=== PATIENT | female | born 1960 | race Caucasian/White ===

== ENCOUNTER 2018-09-30 16:16 | Inpatient (IN) | payer OTHER, SELFPAY ==
[~2018-09-30 16:16] MED LIST: ISOVUE-370 76%-LOCM 1 ML ONE
[2018-09-30] MEDS ORDERED: Morphine 4 MG/ML VIAL ONE ×3 (17:45→19:54)
[2018-09-30 18:09] LABS: #Eosinphils 0.4 thou/uL (0.0-0.7); #Lymphocytes 1.2 thou/uL (1.20-3.40); #Monocytes 1.2 thou/uL (0.11-0.59); #Neutrophils 11.8 thou/uL (1.40-6.50); %Basophils 0.3 % (0.0-1.0); %Eosinophils 2.6 % (0.0-10.0); %Lymphocytes 8.5 % (21.0-51.0); %Monocytes 7.8 % (0.0-10.0); %Neutrophils 80.8 % (42.0-75.0); Hemoglobin 9.9 g/dL (12.0-16.0); Mean Corpuscular HGB CONC 33.4 g/dL (32.0-36.0); Mean Corpuscular Hemoglobin 31.6 pg (27.0-31.0); Mean Corpuscular Volume 94.7 fL (78.0-98.0); Mean Platelet Volume 7.2 fL (7.4-10.4); Platelet Count 463 thou/uL (130-400); Red Blood Cell (RBC) Count 3.12 mill/uL (4.20-5.40); White Blood Cell (WBC) Count 14.6 thou/uL (4.8-10.8)
[2018-09-30] MEDS ORDERED: Enoxaparin Sodium 60 MG/0.6 ML SYRINGE ONE (18:28)
[2018-09-30 18:30] LABS: ALT (SGPT) 49 U/L (8-55); AST (SGOT) 60 U/L (5-34); Albumin 3.2 g/dL (3.5-5.0); Alkaline Phosphatase 1842 U/L (40-150); Anion Gap 14 mmol/L (10-20); BUN (Urea Nitrogen) 11 mg/dL (9.8-20.1); Bilirubin, Total 5.3 mg/dL (0.2-1.2); CK (CPK) 50 U/L (29-168); Calc. Creatinine Clearance 0 mL/min (70-130); Calcium 9.1 mg/dL (7.8-10.44); Carbon Dioxide 22 mmol/L (22-29); Chloride 102 mmol/L (98-107); Estimated GFR-MDRD 86; Globulin 3.9 g/dL (2.4-3.5); Glucose 109 mg/dL (70-105); Lipase 43 U/L (8-78); Potassium 4.1 mmol/L (3.5-5.1); Protein, Total 7.1 g/dL (6.0-8.3); Sodium 134 mmol/L (136-145)
--- NOTE | 2018-09-30 19:04 | CT ---
CTA CHEST WITH CONTRAST: 09/30/18 Axial tomograms obtained with multiplanar reconstruction and 3D postprocessing. INDICATIONS: Chest pain and shortness of breath. A CT from [facility] dated 08/16/18 is available for comparison. That exam shows numerous l ow density lesions throughout the liver indicating metastatic disease. FINDINGS: There are bilateral pulmonary emboli. There is a large saddle type embolus in the left main pulmonary artery. Emboli are seen on the right extending into the right upper, lower, and right middle lobe pu lmonary arteries. Extensive emboli extending to the left lower lobe pulmonary arteries. The lungs show patchy infiltrate in the posterior left lung base extending to the pleural surface wit h left basilar atelectasis posteriorly. Findings are concerning for atelectasis and inflammatory inf iltrate. Mediastinum unremarkable. Thoracic aorta unremarkable. Images through the upper abdomen again show nu merous low density lesions in the liver consistent with metastatic disease. Osseous structures unremarkable. IMPRESSION: 1. Bilateral pulmonary emboli. 2. Atelectasis and infiltrate in the left lung base. 3. Findings relayed to Dr. Sutton. POS: [facility]
[2018-09-30] MEDS ORDERED: Ondansetron PF 4 MG/2 ML Vial ONE (19:54)
[2018-09-30] MEDS ORDERED: Ketorolac Tromethamine 30 MG/ML VIAL ONE (19:54)
[2018-09-30] MEDS ORDERED: Ondansetron ODT 4 MG TAB PO PRN (20:30)
[2018-09-30] MEDS ORDERED: Acetaminophen 650 MG Suppository PR PRN (20:30)
[2018-09-30] MEDS: Promethazine HCl 25 MG/ML VIAL IM/IV PRN (21:55)
--- NOTE | 2018-09-30 22:54 | HP ---
CODE STATUS: Full code. TIME OF EVALUATION: 07:30 p.m. CHIEF COMPLAINT: Shortness of breath. HISTORY OF PRESENT ILLNESS: 58-year-old female patient with past medical history of recent diagnosis of colon cancer, is following with Dr. Alfredo, started chemo recently, came to the hospital after having severe chest pain associated with shortness of breath that started suddenly with no clear triggers. No alleviating factors. Symptoms started around 3 p.m. and gradually worse. The patient was found to have positive CT for pulmonary embolism, has been started on anticoagulation. Also, the patient was started on antibiotics given recent episode of fever and leukocytosis. REVIEW OF SYSTEMS: CONSTITUTIONAL: The patient has fever, chills, generalized weakness. RESPIRATORY: The patient has cough, no sputum production, shortness of breath. CARDIOVASCULAR: No chest pain or palpitation. GASTROINTESTINAL: No nausea, vomiting, diarrhea, or abdominal pain. CENTRAL NERVOUS SYSTEM: No dizziness, headache, or lightheaded. GENITOURINARY: No burning on urination. EXTREMITIES: No leg swelling. All other systems were reviewed and negative except for the findings mentioned above. PAST MEDICAL HISTORY: Positive for metastatic colon cancer with metastasis to the liver. PAST SURGICAL HISTORY: Right port placement. SOCIAL HISTORY: The patient lives at home. No alcohol. No drugs. FAMILY HISTORY: Positive for diabetes, hypertension, coronary artery disease. Mother with cancer in the mouth. KNOWN ALLERGIES: No known drug allergies. REPORTED MEDICATIONS: Compazine. PHYSICAL EXAMINATION: VITAL SIGNS: On presentation, blood pressure 133/67 with heart rate 89, temperature 97.8. GENERAL: The patient is alert, oriented, in no acute distress. HEENT: Eyes, normal conjunctivae. Moist oral mucosa. Anicteric. No JVD. RESPIRATORY: Bilateral air entry. No rales. No wheezes. Symmetric expansion. CARDIOVASCULAR: Normal rate and regular rhythm. No murmurs. No gallops. No edema. ABDOMEN: Soft. Normal bowel sounds. MUSCULOSKELETAL: Baseline range of motion and strength. SKIN: Warm, intact. No pallor. No rash. No redness. Capillary refill seems to be intact. NEUROLOGIC: No evidence of any new focal weakness. Cranial nerves seem to be intact. PSYCHIATRIC: Patient is in good mood. No anxiety. Optimal judgment. DIAGNOSTIC STUDIES: EKG was reviewed. The patient has normal sinus rhythm with a rate of 86, some possible short MS. No additional or significant abnormalities in the EKG. The CT chest showed bilateral pulmonary embolism, left-sided infiltrate. LABORATORY DATA: Labs were reviewed. The patient has white count of 14.6, hemoglobin 9.9, MCV 94.7, platelet count 163. Sodium 134, potassium 4.1, chloride 102, carbon dioxide 22, anion gap 14, BUN 11, creatinine 0.70, GFR 86, glucose 109, calcium 9.1, total bilirubin 5.3, AST 60, and ALT 49, alkaline phosphatase 1842. CK 50. Troponin was negative. Serum total protein 7.1, albumin 3.2, globulin 3.9, albumin to globulin ratio 0.8, lipase 43. ASSESSMENT AND PLAN: The patient will be placed in the hospital with following medical problems; 1. Bilateral pulmonary embolism. We will monitor the patient overnight. The patient will be started on blood thinners. The patient is on Ensure. The patient will need assistance with casework manager for her to have her treatment with anticoagulation for outpatient. Ideally Lovenox could be the best choice given the history of cancer. These will need to be arranged prior to patient discharge . 2. Normocytic anemia. This could be secondary to underlying cancer. There is no sign of bleeding at this point. We will monitor hemoglobin. We will treat accordingly. 3. Leukocytosis with white count of 14.6, likely secondary to sepsis with source for pneumonia. Treatment as stated below. 4. Left lower lobe pneumonia. The patient has been started on antibiotics. Monitor cultures. Hydration as needed. Oxygen to keep saturation more than 90. 5. Sepsis. The patient has subjective fever, leukocytosis of 14, source is pneumonia. Started on antibiotics, cultures, we will adjust treatment as per sensitivity, hydration. 6. Metastatic colon cancer to the liver. The patient follows with Dr. Alfredo. This can be followed as outpatient if no other complications appear during admission. 7. Hyponatremia, sodium 134. This is mild, we will monitor, we will treat accordingly. 8. High liver function tests secondary to metastatic liver disease. No need for any acute intervention at this point. 9. Deep venous thrombosis prophylaxis. Job ID: [id number]
[2018-10-01] MEDS: traMADol HCl 50 MG TAB PO PRN (05:02)
[2018-10-01] MEDS: Enoxaparin Sodium 60 MG/0.6 ML SYRINGE SC SCH ×2 (05:05→17:43)
[2018-10-01 05:09] LABS: #Eosinphils 0.5 thou/uL (0.0-0.7); #Lymphocytes 1.6 thou/uL (1.20-3.40); #Monocytes 1.1 thou/uL (0.11-0.59); #Neutrophils 10.7 thou/uL (1.40-6.50); %Basophils 0.3 % (0.0-1.0); %Eosinophils 3.3 % (0.0-10.0); %Lymphocytes 11.4 % (21.0-51.0); %Monocytes 8.2 % (0.0-10.0); %Neutrophils 76.9 % (42.0-75.0); Hemoglobin 10.2 g/dL (12.0-16.0); Mean Corpuscular HGB CONC 32.8 g/dL (32.0-36.0); Mean Corpuscular Hemoglobin 31.4 pg (27.0-31.0); Mean Corpuscular Volume 95.7 fL (78.0-98.0); Platelet Count 458 thou/uL (130-400); RBC Distribution Width 18.3 % (11.5-14.5); Red Blood Cell (RBC) Count 3.25 mill/uL (4.20-5.40); White Blood Cell (WBC) Count 13.9 thou/uL (4.8-10.8)
[2018-10-01 05:25] LABS: Anion Gap 11 mmol/L (10-20); BUN (Urea Nitrogen) 10 mg/dL (9.8-20.1); Calc. Creatinine Clearance 0 mL/min (70-130); Calcium 9.5 mg/dL (7.8-10.44); Carbon Dioxide 25 mmol/L (22-29); Chloride 103 mmol/L (98-107); Estimated GFR-MDRD 87; Glucose 85 mg/dL (70-105); Potassium 4.3 mmol/L (3.5-5.1); Sodium 135 mmol/L (136-145)
[2018-10-01] MEDS ORDERED: Vancomycin HCl 750 MG in Sodium Chloride 0.9% 250 ML 250 ML IVPB SCH (06:00)
[2018-10-01] MEDS: Morphine 2 MG/ML SYRINGE SLOW IVP PRN ×4 (07:15→20:50)
[2018-10-01] MEDS: Ondansetron PF 4 MG/2 ML Vial IVP PRN ×2 (08:12→15:34)
--- NOTE | 2018-10-01 10:19 | CON ---
DATE OF CONSULTATION: HISTORY OF PRESENT ILLNESS: A 58-year-old female, who presented with a 24-hour history of left-sided chest pain, pleuritic in nature, unresponsive to Tylenol, and shortness of breath. She had coughing, wheezing, orthopnea, and PND. She is a lifelong nonsmoker. No prior history of TB, pneumonia, or bronchial asthma. She was diagnosed to have colon cancer and seeing a local oncologist, received chemotherapy. PAST MEDICAL HISTORY: Otherwise, pertinent for colon cancer. PAST SURGICAL HISTORY: Previous surgeries included a MediPort inserted along with a biopsy of the mass. 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 MEDICATIONS: Chronic medication, none. ALLERGIES: NONE. FAMILY HISTORY: Unremarkable. REVIEW OF SYSTEMS: Negative. PHYSICAL EXAMINATION: VITAL SIGNS: Temperature 98, pulse 73, respiratory rate 18, saturations 98% on room air, blood pressure 120/78. CHEST: Decreased breath sounds. No wheezing. CARDIAC: Normal S1 and S2. No gallops. ABDOMEN: No masses. LABORATORY DATA: Alkaline phosphatase is 1842. White count 13,000. IMPRESSION: 1. Bilateral pulmonary emboli. 2. Metastatic colon cancer. PLAN: No evidence to suspect any infection. I would discontinue antibiotics, continue Lovenox, eventually switch over to Eliquis as per Oncology. TIME SPENT: Consultation note, 70 minutes, 50% in direct patient care. Job ID: [id number]
[2018-10-01] MEDS: Promethazine HCl 25 MG/ML VIAL IM/IV PRN (11:43)
[2018-10-01] MEDS ORDERED: Polyethylene Glycol 3350 17 GM Packet PO SCH (12:30)
--- NOTE | 2018-10-01 15:46 | PDOC.HOSPP ---
- Subjective Subjective: 58 y/o female with metastatic colon cancer admitted with chest pain and SOB associated with low grade fever and leucocytosis. Found to have bilateral PE as well as left lower lobe infiltrate. Feeling better. - Objective Vital Signs & Weight: Vital Signs (12 hours) Temp Pulse Resp BP Pulse Ox 10/01/18 12:34 99.8 F H 89 18 162/76 H 98 10/01/18 07:45 96 10/01/18 07:23 98.1 F 83 18 138/77 95 Weight Weight 132 lb 1.6 oz I&O: 09/30/18 10/01/18 10/02/18 06:59 06:59 06:59 Intake Total 740 Balance 740 Result Diagrams: 10/01/18 04:51 10/01/18 04:51 ROS - Review of Systems All systems: All other ROS were reviewed and found negative. - Medication Medications: Active Medications Generic Name Dose Route Start Last Admin Trade Name Freq PRN Reason Stop Dose Admin Enoxaparin Sodium 60 mg 10/01/18 06:00 10/01/18 05:05 Lovenox SC 10/01/18 20:00 60 mg 0600,1800 SAMEER Administration Morphine Sulfate 2 mg 10/01/18 06:19 10/01/18 15:34 Morphine SLOW IVP 2 mg Q4H PRN Administration Severe Pain (7-10) Ondansetron HCl 4 mg 09/30/18 20:30 10/01/18 15:34 Zofran IVP 4 mg Q6H PRN Administration Nausea/Vomiting Promethazine HCl 25 mg 09/30/18 21:30 10/01/18 11:43 Phenergan IM/IV 25 mg Q6H PRN Administration Nausea/Vomiting Sodium Chloride 10 ml 10/01/18 09:00 10/01/18 08:13 Flush - Normal Saline IVF 10 ml Q12HR SAMEER Administration Sodium Chloride 10 ml 09/30/18 22:23 10/01/18 05:07 Flush - Normal Saline IVF 10 ml PRN PRN Administration Saline Flush Tramadol HCl 50 mg 10/01/18 04:26 10/01/18 05:02 Ultram PO 50 mg Q6H PRN Administration Moderate Pain (4-6) - Exam NAD, awake alert Eye: PERRL ENT: normocephalic atraumatic Neck: supple, symmetric, no JVD Heart: RRR, no murmur Respiratory: CTAB (with some transmitted sound.) Gastrointestinal: soft, non-tender, non-distended, normal bowel sounds Extremities: no cyanosis, no clubbing, no edema Skin: normal turgor Neurological: CN's grossly intact, normal sensation to touch, no weakness, no focal deficits Musculoskeletal: normal tone, normal strength Psychiatric: normal affect, normal behavior, A&O x 3 Hosp A/P (1) Pulmonary emboli Code(s): I26.99 - OTHER PULMONARY EMBOLISM WITHOUT ACUTE COR PULMONALE Status : Acute (2) SIRS (systemic inflammatory response syndrome) Code(s): R65.10 - SIRS OF NON-INFECTIOUS ORIGIN W/O ACUTE ORGAN DYSFUNCTION Status: Acute (3) Sepsis Code(s): A41.9 - SEPSIS, UNSPECIFIED ORGANISM Status: Acute (4) Pneumonia Code(s): J18.9 - PNEUMONIA, UNSPECIFIED ORGANISM Status: Acute (5) Metastatic colon cancer in female Code(s): C18.9 - MALIGNANT NEOPLASM OF COLON, UNSPECIFIED Status: Acute (6) Chest pain Code(s): R07.9 - CHEST PAIN, UNSPECIFIED Status: Acute - Plan Continue anticoagulation> We will transfer [facility] in the morning Continue antibiotic Start incentive spirometry Awaiting oncology input. Diet as tolerated increase activity
[2018-10-01] MEDS: Acetaminophen 325 MG TAB PO PRN (17:43)
--- NOTE | 2018-10-01 17:47 | CON ---
DATE OF CONSULTATION: REASON FOR CONSULTATION: Colon cancer and pulmonary embolism. HISTORY OF PRESENT ILLNESS: A 58-year-old female with stage IV colon cancer with liver metastasis, status post 1 cycle of chemotherapy received on September 23, presenting to the hospital with severe chest pain and shortness of breath that came on suddenly yesterday and found to have PE. CT angio showed bilateral pulmonary embolism with a large saddle-type embolus in the left main pulmonary artery and emboli in the right, extending in the right upper lower and middle lobe pulmonary arteries and extensive emboli extending into the left lower lobe pulmonary arteries as well. The patient was started on Lovenox, and already notes some improvement in her shortness of breath, though she states her pain is still there. She will require indefinite anticoagulation. She denies any unilateral swelling in her legs, but does note bilateral swelling. REVIEW OF SYSTEMS: Ten-point review of systems negative, except as per HPI. PAST MEDICAL HISTORY: Colon cancer with metastasis to liver. PAST SURGICAL HISTORY: Right MediPort placement. SOCIAL HISTORY: No alcohol, drugs, or smoking. FAMILY HISTORY: Diabetes, hypertension, CAD. Mother had oral cancer. ALLERGIES: NO KNOWN DRUG ALLERGIES. CURRENT MEDICATIONS: Reviewed. PHYSICAL EXAMINATION: VITAL SIGNS: Temperature 99.2, pulse 95, respirations 18, saturating 95% on room air, blood pressure 135/72. GENERAL APPEARANCE: The patient is sitting up in a chair, in no acute distress. HEENT: Normocephalic, atraumatic. RESPIRATIONS: Clear to auscultation bilaterally without wheezes, rales, or rhonchi. CARDIOVASCULAR: S1 and S2 with regular rate and rhythm. ABDOMEN: Soft, nontender. MUSCULOSKELETAL: Moves all extremities. SKIN: Warm, intact. EXTREMITIES: Lower extremity; bilateral 1+ lower extremity edema without tenderness or erythema. NEUROLOGIC: Cranial nerves grossly intact. PSYCHIATRIC: Awake, alert, and oriented x3. LABORATORY DATA: White blood cells 13.9, hemoglobin 10.2, platelets 458. Sodium 135, potassium 4.3, BUN 10, creatinine 0.69, total bilirubin 5.3, AST 60, ALT 49, alkaline phosphatase 1842, albumin 3.2. IMAGING DATA: CT angio of the chest shows bilateral PE. ASSESSMENT AND PLAN: A 58-year-old female with stage IV colon cancer on chemotherapy, presenting with bilateral PE. The patient is currently on Lovenox and we will recommend transitioning to Eliquis preparation for discharge. She will require indefinite anticoagulation due to her metastatic cancer, and I have discussed this with her. The patient's anemia is secondary to both her cancer and iron deficiency. In addition, her leukocytosis is reactive secondary to her malignancy. The patient can follow up with me as an outpatient and is still planned to receive her next dose of chemotherapy on Thursday, October 06, 2018. Plan of care was discussed with the patient and her family. Thank you for this consult. Job ID: [id number]
[2018-10-02] MEDS: traMADol HCl 50 MG TAB PO PRN ×3 (04:38→20:18)
[2018-10-02] MEDS: Acetaminophen 325 MG TAB PO PRN (04:38)
[2018-10-02] MEDS: Apixaban 5 MG TAB PO SCH ×2 (05:52→17:48)
[2018-10-02] MEDS ORDERED: Apixaban 5 MG TAB PO SCH (06:00)
[2018-10-02 06:03] LABS: #Eosinphils 0.4 thou/uL (0.0-0.7); #Lymphocytes 1.3 thou/uL (1.20-3.40); #Monocytes 1.6 thou/uL (0.11-0.59); #Neutrophils 7.1 thou/uL (1.40-6.50); %Basophils 0.4 % (0.0-1.0); %Eosinophils 4.2 % (0.0-10.0); %Lymphocytes 12.8 % (21.0-51.0); %Monocytes 14.8 % (0.0-10.0); %Neutrophils 67.8 % (42.0-75.0); Hemoglobin 9.4 g/dL (12.0-16.0); Mean Corpuscular HGB CONC 33.3 g/dL (32.0-36.0); Mean Corpuscular Hemoglobin 31.6 pg (27.0-31.0); Mean Platelet Volume 7.3 fL (7.4-10.4); Platelet Count 495 thou/uL (130-400); Red Blood Cell (RBC) Count 2.96 mill/uL (4.20-5.40); White Blood Cell (WBC) Count 10.5 thou/uL (4.8-10.8)
[2018-10-02 06:26] LABS: Anion Gap 12 mmol/L (10-20); BUN (Urea Nitrogen) 8 mg/dL (9.8-20.1); Calc. Creatinine Clearance 91 mL/min (70-130); Calcium 9.2 mg/dL (7.8-10.44); Carbon Dioxide 24 mmol/L (22-29); Chloride 102 mmol/L (98-107); Estimated GFR-MDRD Greater than 90; Glucose 97 mg/dL (70-105); Potassium 3.9 mmol/L (3.5-5.1); Sodium 134 mmol/L (136-145)
[2018-10-02] MEDS: Polyethylene Glycol 3350 17 GM Packet PO SCH (08:05)
[2018-10-02] MEDS ORDERED: Cepastat Lozenges 1 LOZ PO PRN (08:24)
[2018-10-02] MEDS ORDERED: hydrALAZINE 20 MG/ML VIAL SLOW IVP PRN (08:24)
[2018-10-02] MEDS ORDERED: Senokot S 8.6-50 MG TAB PO PRN (08:24)
[2018-10-02] MEDS ORDERED: Loratadine 10 MG TAB PO PRN (08:24)
[2018-10-02] MEDS ORDERED: Artificial Tears 18 DROP/0.9 ML EA EYE PRN (08:24)
[2018-10-02] MEDS ORDERED: Zolpidem Tartrate 5 MG TAB PO PRN (08:24)
[2018-10-02] MEDS ORDERED: Bisacodyl 10 MG SUPP PR PRN (08:24)
[2018-10-02] MEDS ORDERED: Diabetic Tussin 200 MG/10 ML UDCUP PO PRN (08:24)
[2018-10-02] MEDS ORDERED: Loperamide HCl 2 MG CAP PO PRN (08:24)
[2018-10-02] MEDS ORDERED: Sodium Chloride 0.65% Nasal 44 ML BOT EA NARE PRN (08:24)
[2018-10-02] MEDS: Morphine 2 MG/ML SYRINGE SLOW IVP PRN (10:30)
--- NOTE | 2018-10-02 11:36 | PRG ---
DATE OF SERVICE: 10/02/2018 SUBJECTIVE: Demetria Lowe is started on Eliquis this morning, she is better, less pain, less shortness of breath. OBJECTIVE: VITAL SIGNS: Saturations are 99% on room air, temperature 98, pulse 80, blood pressure 120/76. CHEST: No wheezing or crackles. CARDIAC: Normal S1 and S2. No gallops. ABDOMEN: No masses. ASSESSMENT: Bilateral pulmonary emboli, deep vein thrombosis, anemia, atelectasis. PLAN: Pulmonary maier, hopefully she will be discharged home in the next day or 2. Job ID: [id number]
--- NOTE | 2018-10-02 11:36 | ULT ---
BILATERAL LOWER EXTREMITY VENOUS DOPPLER ULTRASOUND: Date: 10/02/18 HISTORY: Chest pain, shortness of breath, pulmonary embolism. TECHNIQUE: Brasher scale ultrasound with color flow and spectral Doppler imaging of the deep venous systems of the lower extremities was performed bilaterally. FINDINGS: Nonocclusive thrombus in the left deep femoral and femoral veins and the right deep femoral, femoral, popliteal, and posterior tibial veins. The vessels with nonocclusive thrombus demonstrate absence of compression and presence of flow due to the nonocclusive thrombus. IMPRESSION: Bilateral lower extremity deep venous thrombosis. The patient's nurse, Chel, was notified of the results at 1029 hours in person by the drafter structural. CODE CR. POS: [facility]
--- NOTE | 2018-10-02 11:53 | PDOC.HOSPP ---
- Subjective Subjective: Patient seen and examined. No new complaints. No overnight events - Objective Vital Signs & Weight: Vital Signs (12 hours) Temp Pulse Resp BP BP Pulse Ox 10/02/18 11:48 98 F 87 18 147/69 H 98 10/02/18 07:41 98.2 F 80 18 127/76 97 10/02/18 04:00 100.5 F H 83 18 133/66 98 Weight Weight 132 lb 1.6 oz I&O: 10/01/18 10/02/18 10/03/18 06:59 06:59 06:59 Intake Total 740 Balance 740 Result Diagrams: 10/02/18 05:27 10/02/18 05:27 EKG Reviewed by me: Yes ROS - Review of Systems All systems: All other ROS were reviewed and found negative. Eyes: denies: pain, vision change, conjunctivae inflammation, eyelid inflammation, redness, other ENT: denies: ear pain, ear discharge, nose pain, nose discharge, nose congestion , mouth pain, mouth swelling, throat pain, throat swelling, other Respiratory: denies: cough, dry, shortness of breath, hemoptysis, SOB with excertion, pleuritic pain, sputum, wheezing, other Cardiovascular: denies: chest pain, palpitations, orthopnea, paroxysmal noc. dyspnea, edema, light headedness, other Gastrointestinal: denies: nausea, vomitting, abdominal pain, diarrhea, constipation, melena, hematochezia, other Genitourinary: denies: dysuria, frequency, incontinence, hematuria, retention, other Musculoskeletal: denies: neck pain, shoulder pain, arm pain, back pain, hand pain, leg pain, foot pain, other Skin: denies: rash, lesions, severo, bruising, other - Medication Medications: Active Medications Generic Name Dose Route Start Last Admin Trade Name Freq PRN Reason Stop Dose Admin Acetaminophen 650 mg 09/30/18 20:30 10/02/18 04:38 Tylenol PO 650 mg Q4H PRN Administration Headache/Fever/Mild Pain (1-3) Apixaban 10 mg 10/02/18 06:00 10/02/18 05:52 Eliquis PO 10 mg 0600,1800 SAMEER Administration Levofloxacin 500 mg 10/02/18 06:00 10/02/18 05:52 Levaquin PO 10/07/18 06:01 500 mg 0600 SAMEER Administration Morphine Sulfate 2 mg 10/01/18 06:19 10/02/18 10:30 Morphine SLOW IVP 2 mg Q4H PRN Administration Severe Pain (7-10) Ondansetron HCl 4 mg 09/30/18 20:30 10/01/18 15:34 Zofran IVP 4 mg Q6H PRN Administration Nausea/Vomiting Polyethylene Glycol 17 gm 10/02/18 09:00 10/02/18 08:05 Miralax PO 17 gm DAILY SAMEER Administration Promethazine HCl 25 mg 09/30/18 21:30 10/01/18 11:43 Phenergan IM/IV 25 mg Q6H PRN Administration Nausea/Vomiting Sodium Chloride 10 ml 10/01/18 09:00 10/02/18 08:05 Flush - Normal Saline IVF 10 ml Q12HR SAMEER Administration Sodium Chloride 10 ml 09/30/18 22:23 10/01/18 05:07 Flush - Normal Saline IVF 10 ml PRN PRN Administration Saline Flush Tramadol HCl 50 mg 10/01/18 04:26 10/02/18 04:38 Ultram PO 50 mg Q6H PRN Administration Moderate Pain (4-6) Hosp A/P (1) Bilateral pulmonary embolism Code(s): I26.99 - OTHER PULMONARY EMBOLISM WITHOUT ACUTE COR PULMONALE Status : Acute (2) DVT, bilateral lower limbs Code(s): I82.403 - ACUTE EMBOLISM AND THOMBOS UNSP DEEP VEINS OF LOW EXTRM, BI Status: Acute (3) Elevated alkaline phosphatase level Code(s): R74.8 - ABNORMAL LEVELS OF OTHER SERUM ENZYMES Status: Acute (4) Anemia, normocytic normochromic Code(s): D64.9 - ANEMIA, UNSPECIFIED Status: Chronic (5) Metastatic colon cancer in female Code(s): C18.9 - MALIGNANT NEOPLASM OF COLON, UNSPECIFIED Status: Chronic - Plan old records reviewed/req continue elliquis medication reviewed as below symptomatic treatment will monitor today
[2018-10-02] MEDS ORDERED: Magnesium Citrate 300 ML BOT PO SCH (14:15)
[2018-10-02] MEDS: HYDROcodone/Acetaminophen 5/325 mg Tablet PO PRN (21:20)
[2018-10-02] MEDS ORDERED: Aluminum & Magnesium Hydroxide 60 ML, diphenhydrAMINE 150 MG, Lidocaine 2% Viscous Solu... SSW PRN (21:39)
[2018-10-03] MEDS: Apixaban 5 MG TAB PO SCH ×2 (05:08→17:06)
[2018-10-03] MEDS: HYDROcodone/Acetaminophen 5/325 mg Tablet PO PRN ×4 (05:09→22:01)
[2018-10-03 06:01] LABS: INR-International Normal Ratio 1.5; PTT 39.8 SEC (22.9-36.1); Prothrombin Time 17.6 SEC (12.0-14.7)
[2018-10-03 06:09] LABS: #Basophils 0.1 thou/uL (0.0-0.2); #Eosinphils 0.4 thou/uL (0.0-0.7); #Lymphocytes 2.1 thou/uL (1.20-3.40); #Monocytes 1.6 thou/uL (0.11-0.59); #Neutrophils 6.9 thou/uL (1.40-6.50); %Basophils 0.7 % (0.0-1.0); %Eosinophils 3.6 % (0.0-10.0); %Monocytes 14.1 % (0.0-10.0); %Neutrophils 62.6 % (42.0-75.0); Hemoglobin 10.8 g/dL (12.0-16.0); Hypochromia SLIGHT = 6-15 cells (100X) (0-5/hpf); MDiff Complete? YES; Mean Corpuscular HGB CONC 33.2 g/dL (32.0-36.0); Mean Corpuscular Hemoglobin 31.9 pg (27.0-31.0); Mean Corpuscular Volume 95.9 fL (78.0-98.0); Mean Platelet Volume 6.9 fL (7.4-10.4); Platelet Count 593 thou/uL (130-400); Platelet Morphology Comment Appears Increased; RBC Distribution Width 18.2 % (11.5-14.5); Target Cells MODERATE= 6-15 cells (100X) (0-1/hpf)
[2018-10-03 06:15] LABS: ALT (SGPT) 45 U/L (8-55); AST (SGOT) 63 U/L (5-34); Albumin 3.1 g/dL (3.5-5.0); Alkaline Phosphatase 1849 U/L (40-150); Anion Gap 14 mmol/L (10-20); BUN (Urea Nitrogen) 8 mg/dL (9.8-20.1); Calc. Creatinine Clearance 87 mL/min (70-130); Calcium 9.7 mg/dL (7.8-10.44); Carbon Dioxide 26 mmol/L (22-29); Chloride 98 mmol/L (98-107); Estimated GFR-MDRD 90; Globulin 3.9 g/dL (2.4-3.5); Glucose 88 mg/dL (70-105); Potassium 4.1 mmol/L (3.5-5.1); Sodium 134 mmol/L (136-145)
[2018-10-03] MEDS: Polyethylene Glycol 3350 17 GM Packet PO SCH (09:15)
--- NOTE | 2018-10-03 10:11 | PDOC.HOSPP ---
- Subjective Subjective: Patient seen and examined. No new complaints. No overnight events - Objective Vital Signs & Weight: Vital Signs (12 hours) Temp Pulse Resp BP BP Pulse Ox 10/03/18 08:00 97.6 F 71 18 121/58 L 95 10/03/18 04:00 98 F 73 18 121/67 97 Weight Weight 132 lb 1.6 oz Result Diagrams: 10/03/18 05:43 10/03/18 05:43 EKG Reviewed by me: Yes (episode of svt) ROS - Review of Systems All systems: All other ROS were reviewed and found negative. Constitutional: denies: fever, chills, sweats, weakness, malaise, other ENT: denies: ear pain, ear discharge, nose pain, nose discharge, nose congestion , mouth pain, mouth swelling, throat pain, throat swelling, other Respiratory: reports: SOB with excertion, pleuritic pain. denies: cough, dry, shortness of breath, hemoptysis, sputum, wheezing, other Cardiovascular: denies: chest pain, palpitations, orthopnea, paroxysmal noc. dyspnea, edema, light headedness, other Gastrointestinal: denies: nausea, vomitting, abdominal pain, diarrhea, constipation, melena, hematochezia, other Genitourinary: denies: dysuria, frequency, incontinence, hematuria, retention, other Musculoskeletal: denies: neck pain, shoulder pain, arm pain, back pain, hand pain, leg pain, foot pain, other Skin: denies: rash, lesions, severo, bruising, other - Medication Medications: Active Medications Generic Name Dose Route Start Last Admin Trade Name Freq PRN Reason Stop Dose Admin Acetaminophen 650 mg 09/30/18 20:30 10/02/18 04:38 Tylenol PO 650 mg Q4H PRN Administration Headache/Fever/Mild Pain (1-3) Hydrocodone Bitart/Acetaminophen 1 tab 10/02/18 08:24 10/03/18 09:21 [place] 5/325 PO 1 tab Q4H PRN Administration Moderate Pain (4-6) Apixaban 10 mg 10/02/18 06:00 10/03/18 05:08 Eliquis PO 10 mg 0600,1800 SAMEER Administration Al Hydroxide/Mg Hydroxide 60 0 ml 10/02/18 21:39 10/02/18 21:57 ml/ Diphenhydramine HCl 150 mg SSW 60 ml / Lidocaine HCl 60 ml/ PRN PRN Administration Nystatin 6,000,000 units Mouth Irritation Levofloxacin 500 mg 10/02/18 06:00 10/03/18 05:08 Levaquin PO 10/07/18 06:01 500 mg 0600 SAMEER Administration Morphine Sulfate 2 mg 10/01/18 06:19 10/02/18 10:30 Morphine SLOW IVP 2 mg Q4H PRN Administration Severe Pain (7-10) Ondansetron HCl 4 mg 09/30/18 20:30 10/01/18 15:34 Zofran IVP 4 mg Q6H PRN Administration Nausea/Vomiting Polyethylene Glycol 17 gm 10/02/18 09:00 10/03/18 09:15 Miralax PO Not Given DAILY SAMEER Promethazine HCl 25 mg 09/30/18 21:30 10/01/18 11:43 Phenergan IM/IV 25 mg Q6H PRN Administration Nausea/Vomiting Senna/Docusate Sodium 2 tab 10/02/18 08:24 10/02/18 21:26 Senokot S PO 2 tab BID PRN Administration Constipation Sodium Chloride 10 ml 10/01/18 09:00 10/03/18 09:15 Flush - Normal Saline IVF 10 ml Q12HR SAMEER Administration Sodium Chloride 10 ml 09/30/18 22:23 10/01/18 05:07 Flush - Normal Saline IVF 10 ml PRN PRN Administration Saline Flush Tramadol HCl 50 mg 10/01/18 04:26 10/02/18 20:18 Ultram PO 50 mg Q6H PRN Administration Moderate Pain (4-6) - Exam NAD, awake alert Eye: PERRL, anicteric sclera ENT: normocephalic atraumatic, no oropharyngeal lesions Neck: supple, symmetric, no JVD Heart: no murmur, no gallops, no rubs Respiratory: CTAB, no wheezes, no rales, no ronchi Gastrointestinal: soft, non-tender, non-distended, normal bowel sounds Extremities: no cyanosis, no clubbing, no edema Skin: normal turgor, no lesions, no rashes Neurological: CN's grossly intact, normal sensation to touch, no focal deficits Musculoskeletal: normal tone, normal strength Psychiatric: normal affect, normal behavior, A&O x 3 Hosp A/P (1) Bilateral pulmonary embolism Code(s): I26.99 - OTHER PULMONARY EMBOLISM WITHOUT ACUTE COR PULMONALE Status : Acute (2) DVT, bilateral lower limbs Code(s): I82.403 - ACUTE EMBOLISM AND THOMBOS UNSP DEEP VEINS OF LOW EXTRM, BI Status: Acute (3) Elevated alkaline phosphatase level Code(s): R74.8 - ABNORMAL LEVELS OF OTHER SERUM ENZYMES Status: Acute (4) Anemia, normocytic normochromic Code(s): D64.9 - ANEMIA, UNSPECIFIED Status: Chronic (5) Metastatic colon cancer in female Code(s): C18.9 - MALIGNANT NEOPLASM OF COLON, UNSPECIFIED Status: Chronic - Plan old records reviewed/req, plan discussed w/ family continue essence will continue current treatment plan ambulate as tolerated will consider discharge tomorrow medication reviewed as below symptomatic treatment
--- NOTE | 2018-10-03 11:09 | PRG ---
DATE OF SERVICE: 10/03/2018 SUBJECTIVE: This morning, she is better. No shortness of breath. No cough. No wheezing. OBJECTIVE: VITAL SIGNS: Saturations are 98% on room air, temperature 97, pulse 70, respirations 18, and blood pressure 120/58. CHEST: No wheezing or crackles. CARDIAC: Normal S1 and S2. No gallops. ABDOMEN: Soft and massive. IMPRESSION: 1. Metastatic cancer. 2. Bilateral pulmonary emboli and bilateral lower extremity deep venous thrombosis. 3. Bilateral lower lung atelectatic changes. PLAN: 1. Continue Eliquis at home. 2. From the pulmonary maier, antibiotics for no more than five days. Follow up with her oncologist. Lifelong Eliquis. Job ID: [id number]
[2018-10-03] MEDS ORDERED: Fleet Enema 133 ML BOT FS SCH (17:45)
[2018-10-03] MEDS: Acetaminophen 325 MG TAB PO PRN (18:11)
[2018-10-04] MEDS: HYDROcodone/Acetaminophen 5/325 mg Tablet PO PRN (06:30)
[2018-10-04] MEDS: Apixaban 5 MG TAB PO SCH (06:31)
[2018-10-04] MEDS: Polyethylene Glycol 3350 17 GM Packet PO SCH (07:52)
--- NOTE | 2018-10-04 09:54 | PRG ---
DATE OF SERVICE: 10/04/2018 SUBJECTIVE: This morning, she is better. OBJECTIVE: VITAL SIGNS: Temperature 98, pulse 70, respiratory rate 16, saturation is 97% on room air, and blood pressure 120/60. CHEST: No wheezing or crackles. No chest pain. No shortness of breath. CARDIAC: Normal S1, S2. No gallops. ABDOMEN: No masses. IMPRESSION: 1. Metastatic cancer. 2. Pulmonary embolism and deep venous thrombosis. PLAN: Home, [facility]. Follow up with the primary care physician. Job ID: [id number]
--- NOTE | 2018-10-04 10:55 | DIS ---
DATE OF ADMISSION: 09/30/2018 DATE OF DISCHARGE: 10/04/2018 PRIMARY CARE PHYSICIAN: [facility] Call Admission. DISCHARGE DISPOSITION: Home. PRIMARY DISCHARGE DIAGNOSES: 1. Bilateral pulmonary embolism. 2. Bilateral lower extremity deep vein thrombosis. 3. Elevated alkaline phosphatase level due to liver metastasis. SECONDARY DISCHARGE DIAGNOSES: 1. Normocytic normochromic anemia. 2. Metastatic colon cancer. PRIMARY PROCEDURE/OPERATION: None. RADIOLOGICAL INVESTIGATION: CT angiography positive for bilateral pulmonary embolism, ultrasound positive for bilateral lower extremity DVT. SIGNIFICANT LABORATORY DATA: Hemoglobin 10.8, WBC 11.0, platelet 593. INR 1.5. Sodium 134, creatinine 0.67, AST 63, alkaline phosphatase 1849, albumin 3.1, lipase 43. Blood culture negative. DISCHARGE MEDICATIONS: 1. Eliquis 10 mg p.o. b.i.d. until October 07, 2018, and subsequently 5 mg p.o. b.i.d. 2. The patient will continue MiraLAX 17 g p.o. daily basis or p.r.n. basis for constipation. CONTRAINDICATION: None. CODE STATUS: Full code. INPATIENT CONSULTANTS: 1. Dr. Juni sandoval, Oncologist, was consulted while in hospital. 2. Dr. Gabriel Grimaldo was following for pulmonary embolism. TEST RESULTS PENDING ON DISCHARGE: None. ALLERGIES: NO KNOWN DRUG ALLERGIES. DISCHARGE PLAN: Posthospital, the patient will follow up with primary care physician in 1 week. HOSPITAL COURSE: A 58-year-old female with above-mentioned medical problem, who was admitted by Dr. Portillo, please see his H and P for further details. The patient was having pleuritic chest pain and shortness of breath. The patient had CT angiography, which showed bilateral pulmonary embolism. Initially, she was treated with Lovenox and subsequently Oncology changed to Eliquis therapy. The patient was also suspected for pneumonia, but clinically the patient was not having any pneumonia and Pulmonary treated her with levofloxacin while in the hospital. She did not require prescription for that upon discharge. We provided assistant producer for Eliquis with help of bilingual patient support caseworker. This patient is doing much better. She does not have any symptoms. Her pleuritic chest discomfort and also dyspnea improved. She is on room air, ambulatory, tolerating p.o. well. While in hospital, she had constipation that was also addressed with stool softener and Fleet enema with significant improvement. I have seen and examined the patient at bedside today. Her vitals are stable. Her examination is normal. All consultants cleared her for discharge. Risks and benefit of Eliquis therapy discussed with the patient and we are doing medication assistance for her today. She will follow up with Oncology and she will follow up with Pulmonary if needed. She will need lifelong Eliquis therapy or any kind of anticoagulants therapy for her DVT and PE. Job ID: [id number]
[2018-10-04] MEDS: Acetaminophen 325 MG TAB PO PRN (13:09)
[2018-10-04 19:22] VITALS: BP 127/68; TEMP 98.3
== END 2018-10-04 14:37 | disposition home or self-care (01) | DRG 176 ==
LOC: ERS 16:16 → T4-B 21:06 → 2NO 22:58
PROVIDERS: ADMIT Hospitalist; ATTEND Hospitalist
DX: I26.99 Other pulmonary embolism without acute cor pulmonale (principal); C18.9 Malignant neoplasm of colon, unspecified; C78.7 Secondary malignant neoplasm of liver and intrahepatic bile duct; E87.1 Hypo-osmolality and hyponatremia; J98.11 Atelectasis; I82.403 Acute embolism and thrombosis of unspecified deep veins of lower extremity, bilateral; D50.9 Iron deficiency anemia, unspecified; K59.00 Constipation, unspecified; Z92.21 Personal history of antineoplastic chemotherapy
CPT/HCPCS: 36415; 71275; 80048; 80053; 82550; 83690; 84484; 85025; 85610; 85730; 87040; 93005; 93970; 96361; 96365; 96372; 96375; 96376; J1650; J1885; J1956; J2270; J2405; J2550; J3370; J7050; Q0163; Q9966

== ENCOUNTER 2018-10-06 11:32 | Day surgery (SDC) | payer OTHER ==
[~2018-10-06 11:32] MED LIST changes: +BEVACIZUMAB IVPB SCH; +DEXTROSE 5% IVPB SCH; +FLUOROURACIL IVPB SCH; -ISOVUE-370 76%-LOCM 1 ML ONE; +LEUCOVORIN CALCIUM IVPB SCH; +OXALIPLATIN IVPB SCH; +Ondansetron HCl/PF 15 MG, Dexamethasone Sod Phosphate 10 MG in Sodium Chloride 0.9% 50 ML IVPB SCH; +SODIUM CHLORIDE 0.9% IVPB SCH; +WATER IVPB SCH
[2018-10-06] MEDS ORDERED: SODIUM CHLORIDE 0.9% IVPB SCH (12:00)
[2018-10-06] MEDS ORDERED: BEVACIZUMAB IVPB SCH (12:00)
[2018-10-06 12:16] VITALS: BP 111/56; TEMP 97.9
== END 2018-10-06 17:04 | disposition home or self-care (01) ==
LOC: MERGE 11:32 → ONC/OP 11:32
PROVIDERS: ATTEND Internal Medicine Hematology & Oncology
DX: Z51.11 Encounter for antineoplastic chemotherapy (principal); C78.7 Secondary malignant neoplasm of liver and intrahepatic bile duct; C18.2 Malignant neoplasm of ascending colon; Z91.018 Allergy to other foods; Z91.011 Allergy to milk products
CPT/HCPCS: 96375; 96413; 96415; 96417; J0640; J1100; J2405; J7070; J9190; J9263

== ENCOUNTER 2018-10-20 09:10 | Day surgery (SDC) | payer OTHER ==
[2018-10-20] MEDS ORDERED: Sodium Chloride 0.9% 20 ML ONE (09:22)
[2018-10-20] MEDS ORDERED: diphenhydrAMINE 50 MG/ML VIAL ONE (14:14)
[2018-10-20] MEDS ORDERED: diphenhydrAMINE 50 MG/ML VIAL IVP SCH (14:30)
== END 2018-10-20 15:48 | disposition home or self-care (01) ==
LOC: ONC/OP 09:10
PROVIDERS: ATTEND Internal Medicine Hematology & Oncology
DX: Z51.11 Encounter for antineoplastic chemotherapy (principal); C78.7 Secondary malignant neoplasm of liver and intrahepatic bile duct; C18.2 Malignant neoplasm of ascending colon; Z91.018 Allergy to other foods
CPT/HCPCS: 96367; 96375; 96413; 96415; 96417; 99212; G0463; J0640; J1100; J1200; J1642; J2405; J3490; J7070; J9035; J9190; J9263

== ENCOUNTER 2018-11-03 09:59 | Day surgery (SDC) | payer OTHER ==
[~2018-11-03 09:59] MED LIST changes: -Ondansetron HCl/PF 15 MG, Dexamethasone Sod Phosphate 10 MG in Sodium Chloride 0.9% 50 ML IVPB SCH
[2018-11-03] MEDS ORDERED: Sodium Chloride 0.9% 20 ML ONE (10:03)
[2018-11-03] MEDS ORDERED: diphenhydrAMINE 25 MG in Sodium Chloride 0.9% 50 ML IVPB PRN (10:07)
[2018-11-03] MEDS: Ondansetron 2MG/ML MDV 15 MG, Dexamethasone Sod Phosphate 10 MG in Sodium Chloride 0.9%... IVPB SCH ×2 (10:24→10:58)
[2018-11-03 11:04] VITALS: BP 139/60; TEMP 97.8
== END 2018-11-03 15:22 | disposition home or self-care (01) ==
LOC: ONC/OP 09:59
PROVIDERS: ATTEND Internal Medicine Hematology & Oncology
DX: Z51.11 Encounter for antineoplastic chemotherapy (principal); C78.7 Secondary malignant neoplasm of liver and intrahepatic bile duct; C18.2 Malignant neoplasm of ascending colon
CPT/HCPCS: 96367; 96375; 96413; 96415; 96417; J0640; J1100; J1200; J2405; J3490; J7070; J9035; J9190; J9263

== ENCOUNTER 2018-11-17 10:45 | Day surgery (SDC) | payer OTHER ==
[~2018-11-17 10:45] MED LIST changes: -OXALIPLATIN IVPB SCH; +Ondansetron 2MG/ML MDV 15 MG, Dexamethasone Sod Phosphate 10 MG in Sodium Chloride 0.9%... IVPB SCH; +diphenhydrAMINE 25 MG in Sodium Chloride 0.9% 50 ML IVPB SCH
[2018-11-17] MEDS ORDERED: Sodium Chloride 0.9% 30 ML ONE (11:29)
== END 2018-11-17 16:02 | disposition home or self-care (01) ==
LOC: ONC/OP 10:45
PROVIDERS: ATTEND Internal Medicine Hematology & Oncology
DX: Z51.11 Encounter for antineoplastic chemotherapy (principal); C78.7 Secondary malignant neoplasm of liver and intrahepatic bile duct; C18.2 Malignant neoplasm of ascending colon; Z91.011 Allergy to milk products; Z91.018 Allergy to other foods
CPT/HCPCS: 96367; 96375; 96413; 96415; 96416; 96417; J0640; J1100; J1200; J2405; J3490; J7070; J9035; J9190; J9263

== ENCOUNTER → 2018-12-01 | Day surgery (SDC) | payer OTHER ==
[~2018-12-01] MED LIST changes: +Dexamethasone Sod Phosphate 10 MG, Ondansetron 2MG/ML MDV 15 MG in Sodium Chloride 0.9%... IVPB SCH; -Ondansetron 2MG/ML MDV 15 MG, Dexamethasone Sod Phosphate 10 MG in Sodium Chloride 0.9%... IVPB SCH
[2018-12-01 14:57] LABS: Bilirubin Negative (Negative); Blood, Urine Negative (Negative); Clarity Clear (Clear); Glucose, Urine (Dipstick) 300 mg/dL (Negative); Leukocyte Negative Leu/uL (Negative); Nitrite Negative (Negative); Protein, Urine (Dipstick) Negative (Neg-Trace); RBC/HPF 0-3 HPF (0-3); Squamous Epithelial 0-3 HPF (0-3); Urobilinogen Normal mg/dL (Less than 2); WBC/HPF 0-3 HPF (0-3)
[2018-12-01 15:07] LABS: Bacteria/HPF None Seen HPF (None Seen)
[2018-12-01 15:08] LABS: Urine Culture Reflex No No
== END ==
LOC: ONC/OP 11:18
PROVIDERS: ATTEND Internal Medicine Hematology & Oncology
DX: Z51.11 Encounter for antineoplastic chemotherapy (principal); C78.7 Secondary malignant neoplasm of liver and intrahepatic bile duct; C18.2 Malignant neoplasm of ascending colon
CPT/HCPCS: 81001; 87086; 96367; 96375; 96413; 96415; 96417; J0640; J1100; J1200; J2405; J3490; J7070; J9035; J9190; J9263

== ENCOUNTER 2018-12-13 08:33 | Outpatient (CLI) | payer OTHER ==
--- NOTE | 2018-12-13 09:59 | CT ---
CT Chest Abd Pelvis W Con HISTORY: Colon cancer with liver metastases. Patient is currently on chemotherapy. This is a follow-u p. COMPARISON: CT of abdomen and pelvis performed 08/16/2018 and chest of 09/30/2018. FINDINGS: The lungs are clear of any confluent infiltrative process. There are some nodular pleural-b ased changes within the left lower lobe, this is in an area where there is more confluent parenchymal change on the CT of the chest is 09/30/2018 and I would favor that this probably represent s some residual scar. No pleural effusions. There is no significant mediastinal or hilar lymphadenopathy. No significant axillary adenopathy. CT of abdomen performed with contrast: Innumerable hepatic masses are again demonstrated. There does not appear to be a significant change as compared to the prior exam. There is still persistent ductal dilatation within the biliary system within the left lobe of the liver. The spleen is within n ormal limits in size. The gallbladder is contracted with the suggestion of some wall edema change. This could be on the basis of adjacent liver disease. Pancreas shows no mass or ductal dilatation. There are low-attenuation nodes in the peripancreatic an d elizabeth region, I do not appreciate a significant degree of change since the previous study. Right and left adrenal glands and right and left kidneys are normal in size. There is no significant periaortic adenopathy. There are some nodes in the ileocolic chain demonstrated. There is what appears be wall thickening to the ascending colon I cannot exclude this as a mass. CT of pelvis performed with contrast: There is fullness in the lower uterine segment or cervix region I cannot exclude this as a mass. There is trace free fluid noted. No significant pelvic lymphadenopathy is present. IMPRESSION: 1. Nodular pleural-based parenchymal change in left lower lobe this is an area of previous infiltrate and probably represents residual scar. 2. No significant change in the appearance of the hepatic masses or the adenopathy which is predomina ntly in the elizabeth and peripancreatic region. 3. Wall thickening to the ascending colon there are some mildly prominent ileocolic lymph nodes prese nt. This is felt to be similar to the previous exam. 4. Fullness in the lower uterine segment or cervix region, I cannot exclude a mass clinical correlati on and pelvic ultrasound may be helpful in assessment.
[2018-12-13] MEDS ORDERED: Iopamidol 370 76% 100 ML VIAL ONE (13:41)
== END 2018-12-13 08:34 | disposition home or self-care (01) ==
LOC: CT 08:33
PROVIDERS: ATTEND Internal Medicine Hematology & Oncology
DX: C18.2 Malignant neoplasm of ascending colon (principal); C78.7 Secondary malignant neoplasm of liver and intrahepatic bile duct; R91.8 Other nonspecific abnormal finding of lung field; K63.89 Other specified diseases of intestine
CPT/HCPCS: 71260; 74177; Q9967

== ENCOUNTER 2018-12-15 10:46 | Day surgery (SDC) | payer OTHER ==
[2018-12-15] MEDS ORDERED: Sodium Chloride 0.9% 20 ML ONE (10:56)
[2018-12-15] MEDS ORDERED: diphenhydrAMINE 50 MG/ML VIAL ONE (13:41)
[2018-12-15] MEDS ORDERED: diphenhydrAMINE 50 MG/ML VIAL IVP SCH (14:00)
== END 2018-12-15 15:11 | disposition home or self-care (01) ==
LOC: ONC/OP 10:46
PROVIDERS: ATTEND Internal Medicine Hematology & Oncology
DX: Z51.11 Encounter for antineoplastic chemotherapy (principal); C18.2 Malignant neoplasm of ascending colon; C78.7 Secondary malignant neoplasm of liver and intrahepatic bile duct; Z88.8 Allergy status to other drugs, medicaments and biological substances; Z91.011 Allergy to milk products
CPT/HCPCS: 96367; 96375; 96413; 96416; 96417; 99212; G0463; J0640; J1100; J1200; J2405; J3490; J7070; J9035; J9190; J9263

== ENCOUNTER 2018-12-29 09:43 | Day surgery (SDC) | payer OTHER ==
[~2018-12-29 09:43] MED LIST changes: -diphenhydrAMINE 25 MG in Sodium Chloride 0.9% 50 ML IVPB SCH; +diphenhydrAMINE 50 MG in Sodium Chloride 0.9% 50 ML IVPB SCH
[2018-12-29] MEDS ORDERED: Famotidine 40 MG/4 ML VIAL SLOW IVP SCH (10:15)
[2018-12-29] MEDS ORDERED: Famotidine/PF 20 mg/2ml Vial SLOW IVP SCH (10:30)
[2018-12-29 10:56] VITALS: BP 128/62; TEMP 98.2
[2018-12-29] MEDS ORDERED: Lorazepam 2 MG/ML VIAL ONE (12:59)
[2018-12-29] MEDS ORDERED: Lorazepam 2 MG/ML VIAL SLOW IVP SCH (13:30)
== END 2018-12-29 17:03 | disposition home or self-care (01) ==
LOC: ONC/OP 09:43
PROVIDERS: ATTEND Internal Medicine Hematology & Oncology
DX: Z51.11 Encounter for antineoplastic chemotherapy (principal); C18.2 Malignant neoplasm of ascending colon; C78.7 Secondary malignant neoplasm of liver and intrahepatic bile duct; Z91.011 Allergy to milk products; Z91.018 Allergy to other foods
CPT/HCPCS: 96367; 96375; 96413; 96415; 96416; 96417; 99211; G0463; J0640; J1100; J1200; J2060; J2405; J3490; J7070; J9035; J9190; J9263; S0028

== ENCOUNTER 2019-01-12 10:54 | Day surgery (SDC) | payer OTHER ==
[~2019-01-12 10:54] MED LIST changes: +Famotidine/PF 20 MG in Sodium Chloride 0.9% 50 ML IVPB SCH; +Lorazepam 2 MG/ML VIAL SLOW IVP SCH
[2019-01-12] MEDS ORDERED: Sodium Chloride 0.9% 40 ML ONE (11:57)
[2019-01-12] MEDS ORDERED: diphenhydrAMINE 50 MG/ML VIAL IVP PRN (12:25)
== END 2019-01-12 16:42 | disposition home or self-care (01) ==
LOC: ONC/OP 10:54
PROVIDERS: ATTEND Internal Medicine Hematology & Oncology
DX: Z51.11 Encounter for antineoplastic chemotherapy (principal); C78.7 Secondary malignant neoplasm of liver and intrahepatic bile duct; C18.2 Malignant neoplasm of ascending colon; Z91.011 Allergy to milk products; Z91.018 Allergy to other foods
CPT/HCPCS: 96367; 96375; 96413; 96415; 96416; 96417; J0640; J1100; J1200; J2060; J2405; J3490; J7070; J9035; J9190; J9263; S0028

== ENCOUNTER → 2019-01-15 | Day surgery (SDC) | payer OTHER ==
[~2019-01-15] MED LIST changes: -BEVACIZUMAB IVPB SCH; -DEXTROSE 5% IVPB SCH; -Dexamethasone Sod Phosphate 10 MG, Ondansetron 2MG/ML MDV 15 MG in Sodium Chloride 0.9%... IVPB SCH; -FLUOROURACIL IVPB SCH; -Famotidine/PF 20 MG in Sodium Chloride 0.9% 50 ML IVPB SCH; -LEUCOVORIN CALCIUM IVPB SCH; -Lorazepam 2 MG/ML VIAL SLOW IVP SCH; +PEGFILGRASTIM-JMDB 6 MG/0.6 ML SYRINGE SQ SCH; -SODIUM CHLORIDE 0.9% IVPB SCH; -WATER IVPB SCH; -diphenhydrAMINE 50 MG in Sodium Chloride 0.9% 50 ML IVPB SCH
== END ==
LOC: ONC/OP 14:30
PROVIDERS: ATTEND Internal Medicine Hematology & Oncology
DX: C78.7 Secondary malignant neoplasm of liver and intrahepatic bile duct (principal); C18.2 Malignant neoplasm of ascending colon
CPT/HCPCS: Q5108

== ENCOUNTER 2019-01-26 09:55 | Day surgery (SDC) | payer OTHER ==
[~2019-01-26 09:55] MED LIST changes: +BEVACIZUMAB IVPB SCH; +DEXTROSE 5% IVPB SCH; +Dexamethasone Sod Phosphate 10 MG, Ondansetron 2MG/ML MDV 15 MG in Sodium Chloride 0.9%... IVPB SCH; +FLUOROURACIL IVPB SCH; +Famotidine/PF 20 MG in Sodium Chloride 0.9% 50 ML IVPB SCH; +Famotidine/PF 20 mg/2ml Vial SLOW IVP SCH; +LEUCOVORIN CALCIUM IVPB SCH; +Lorazepam 2 MG/ML VIAL SLOW IVP SCH; -PEGFILGRASTIM-JMDB 6 MG/0.6 ML SYRINGE SQ SCH; +SODIUM CHLORIDE 0.9% IVPB SCH; +WATER IVPB SCH; +diphenhydrAMINE 50 MG/ML VIAL IVP PRN
[2019-01-26] MEDS ORDERED: Sodium Chloride 0.9% 20 ML ONE (10:18)
[2019-01-26 13:14] VITALS: BP 115/67; TEMP 97.8
[2019-01-26] MEDS ORDERED: diphenhydrAMINE 50 MG/ML VIAL IVP SCH (14:00)
[2019-01-26] MEDS ORDERED: Prochlorperazine 10 MG/2 ML VIAL IVP SCH (14:00)
== END 2019-01-26 16:17 | disposition home or self-care (01) ==
LOC: ONC/OP 09:55
PROVIDERS: ATTEND Internal Medicine Hematology & Oncology
DX: Z51.11 Encounter for antineoplastic chemotherapy (principal); C18.2 Malignant neoplasm of ascending colon; C78.7 Secondary malignant neoplasm of liver and intrahepatic bile duct; Z91.011 Allergy to milk products; Z91.018 Allergy to other foods
CPT/HCPCS: 96367; 96375; 96413; 96415; 96417; J0640; J0780; J1100; J2060; J2405; J3490; J7070; J9035; J9190; J9263; S0028

== ENCOUNTER → 2019-02-09 | Day surgery (SDC) | payer OTHER ==
[~2019-02-09] MED LIST changes: +OXALIPLATIN IVPB SCH; +Sodium Chloride 0.9% 30 ML ONE; -diphenhydrAMINE 50 MG/ML VIAL IVP PRN
== END ==
LOC: ONC/OP 10:53
PROVIDERS: ATTEND Internal Medicine Hematology & Oncology
DX: Z51.11 Encounter for antineoplastic chemotherapy (principal); C78.7 Secondary malignant neoplasm of liver and intrahepatic bile duct; C18.2 Malignant neoplasm of ascending colon
CPT/HCPCS: 96367; 96375; 96413; 96415; 96417; J0640; J1100; J2060; J2405; J3490; J7070; J9035; J9190; J9263

== ENCOUNTER → 2019-02-12 | Day surgery (SDC) | payer OTHER ==
[~2019-02-12] MED LIST changes: -BEVACIZUMAB IVPB SCH; -DEXTROSE 5% IVPB SCH; -Dexamethasone Sod Phosphate 10 MG, Ondansetron 2MG/ML MDV 15 MG in Sodium Chloride 0.9%... IVPB SCH; -FLUOROURACIL IVPB SCH; -Famotidine/PF 20 MG in Sodium Chloride 0.9% 50 ML IVPB SCH; -Famotidine/PF 20 mg/2ml Vial SLOW IVP SCH; -LEUCOVORIN CALCIUM IVPB SCH; -Lorazepam 2 MG/ML VIAL SLOW IVP SCH; -OXALIPLATIN IVPB SCH; +PEGFILGRASTIM-JMDB 6 MG/0.6 ML SYRINGE SQ SCH; -SODIUM CHLORIDE 0.9% IVPB SCH; -Sodium Chloride 0.9% 30 ML ONE; -WATER IVPB SCH
[2019-02-12 15:57] VITALS: BP 126/71; TEMP 98.4
== END ==
LOC: ONC/OP 15:21
PROVIDERS: ATTEND Internal Medicine Hematology & Oncology
DX: Z51.11 Encounter for antineoplastic chemotherapy (principal); C18.2 Malignant neoplasm of ascending colon; C78.7 Secondary malignant neoplasm of liver and intrahepatic bile duct; Z91.011 Allergy to milk products; Z91.018 Allergy to other foods
CPT/HCPCS: 96372; Q5108

== ENCOUNTER 2019-03-31 08:56 | Outpatient (CLI) | payer OTHER ==
--- NOTE | 2019-03-31 11:07 | CT ---
CT OF THE CHEST, ABDOMEN AND PELVIS WITH IV CONTRAST: INDICATION: History of colon cancer with hepatic metastatic disease. COMPARISON: CT of the chest, abdomen and pelvis dated December 13, 2018, and a CT the chest dated September 30, 2018. FINDINGS: CHEST: Lungs: The area of nodular scarring in the left lower lobe on image 42 of series 5 is slightly smalle r now measuring 11 x 8 mm where previously it measured 12 x 9 mm. However, there is a new subpleural pulmonary nodule with surrounding groundglass opacity in the left lower lobe on image 30 o f series 5 measuring 11 mm. There is an enlarging lingular nodule on image 35 series 5 now measuring 6 mm where previously it measured 5 mm. There is an enlarging 4 mm pulmonary nodule in the lingula on image 34 series 5, where previously it measured 2 mm. There is a small area of reticular nodularity within the posterior lateral right lower lobe which is stable on image 49 of series 5. Pleural space: No effusion. Mediastinum: No pathologically enlarged lymph nodes are evident. Axilla: No pathologically enlarged lymph nodes. ABDOMEN: Lung bases: Clear Liver: Multiple hepatic masses are largely stable. One of the index mass is within the medial left he patic lobe extending into the right hepatic lobe measures 8.8 cm were previously it measured 9 cm. Gallbladder: Contracted Pancreas: Normal. Adrenal glands: Normal. Spleen: Normal. Kidneys and ureters: Normal. No hydronephrosis. Vasculature: Within normal limits. 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 Lymph nodes:There is worsening periportal lymphadenopathy. There is a portacaval lymph node now measu ring 2.8 cm were it previously measured 2 cm. An additional periportal lymph node previously measuring 1.6 cm now measures 2 cm on image 64 of series 3. The right ileocolonic lymph node is sligh tly larger now measuring 1.2 cm where previously it measured 0.9 cm. An additional measures 0.9 cm that previous measures 0.6 cm. Free fluid in abdomen:No free fluid is evident. PELVIS: Small and large bowel: There is a prominent amount of retained stool within the colon. Wall thickenin g involving portions of the cecum and ascending colon appear similar but is difficult to interrogate due to the presence of a large amount of stool. Small bowel is of normal caliber Appendix:Normal Bladder: Normal. Rectal and perirectal soft tissues:Normal. Reproductive structures: Normal. Free fluid in pelvis: Mild free fluid is stable Lymphadenopathy pelvis: No lymphadenopathy is evident. Osseous structures: No acute osseous abnormality. No destructive osteolytic or osteoblastic lesion i s identified. There is scattered degenerative and osteoarthritic changes. Soft tissues:Normal. IMPRESSION: Findings most consistent with progressive metastatic disease. There are enlarging and new pulmonary n odules in the left lung. Short-term CT follow-up of the thorax is recommended to document stability or resolution. Pulmonary metastatic disease is not excluded. Hepatic metastatic disease is stable. T here is worsening periportal and right ileocolonic lymphadenopathy. The wall thickening involving the ascending colon and cecum is largely stable but is poorly evaluated due to the presence of a prom inent amount retained stool. Transcribed Date/Time: 03/31/2019 11:26 AM
== END 2019-03-31 08:57 | disposition home or self-care (01) ==
LOC: SCSCT 08:56
PROVIDERS: ATTEND Internal Medicine Hematology & Oncology
DX: C78.7 Secondary malignant neoplasm of liver and intrahepatic bile duct (principal); C18.2 Malignant neoplasm of ascending colon; R91.8 Other nonspecific abnormal finding of lung field; R59.0 Localized enlarged lymph nodes
CPT/HCPCS: 71260; 74177

== ENCOUNTER 2019-06-20 00:36 | Emergency (ER) | payer OTHER ==
[2019-06-20] MEDS ORDERED: Ondansetron PF 4 MG/2 ML Vial ONE ×2 (01:19→01:21)
[2019-06-20] MEDS ORDERED: Morphine 4 MG/ML VIAL ONE ×2 (01:19→03:17)
[2019-06-20 01:24] LABS: INR-International Normal Ratio 1.5; PTT 37.7 SEC (22.9-36.1); Prothrombin Time 18.3 SEC (12.0-14.7)
[2019-06-20 01:25] LABS: Hemoglobin 12.1 g/dL (12.0-16.0); Mean Corpuscular HGB CONC 33.3 g/dL (32.0-36.0); Mean Corpuscular Hemoglobin 34.8 pg (27.0-31.0); Mean Platelet Volume 7.1 fL (7.4-10.4); Platelet Count 435 thou/uL (130-400); RBC Distribution Width 15.4 % (11.5-14.5); Red Blood Cell (RBC) Count 3.46 mill/uL (4.20-5.40); White Blood Cell (WBC) Count 19.2 thou/uL (4.8-10.8)
[2019-06-20 01:42] LABS: ALT (SGPT) 31 U/L (8-55); AST (SGOT) 54 U/L (5-34); Albumin 2.9 g/dL (3.5-5.0); Alkaline Phosphatase 1013 U/L (40-110); Anion Gap 14 mmol/L (10-20); BUN (Urea Nitrogen) 9 mg/dL (9.8-20.1); Bilirubin, Total 12.3 mg/dL (0.2-1.2); Calc. Creatinine Clearance 0 mL/min (70-130); Carbon Dioxide 24 mmol/L (22-29); Chloride 99 mmol/L (98-107); Estimated GFR-MDRD 78; Globulin 4.2 g/dL (2.4-3.5); Glucose 104 mg/dL (70-105); Lipase 5 U/L (8-78); Protein, Total 7.1 g/dL (6.0-8.3); Sodium 133 mmol/L (136-145)
[2019-06-20 01:49] LABS: #Eosinphils 0.4 thou/uL (0.0-0.7); #Lymphocytes 1.1 thou/uL (1.20-3.40); #Monocytes 1.7 thou/uL (0.11-0.59); #Neutrophils 15.9 thou/uL (1.40-6.50); %Basophils 0.2 % (0.0-1.0); %Eosinophils 2.2 % (0.0-10.0); %Monocytes 8.9 % (0.0-10.0); %Neutrophils 82.8 % (42.0-75.0); MDiff Complete? YES; Macrocytosis SLIGHT = 6-15 cells (100X) (0-5/hpf); Platelet Morphology Comment Appears Increased; Target Cells SLIGHT = 2-5 cells (100X) (0-1/hpf); Toxic Granulation SLIGHT
[2019-06-20] MEDS ORDERED: Piperacillin/Tazobactam 4.5 GM VIAL ONE (01:52)
[2019-06-20 02:18] LABS: Bilirubin 2+ (Negative); Blood, Urine Negative (Negative); Clarity Clear (Clear); Glucose, Urine (Dipstick) Normal (Negative); Leukocyte Negative Leu/uL (Negative); Nitrite Negative (Negative); Protein, Urine (Dipstick) 20 mg/dL (Neg-Trace)
[2019-06-20] MEDS ORDERED: Albumin 25% 25 GM/100 ML BOT IVPB SCH (02:30)
[2019-06-20] MEDS ORDERED: Vancomycin 1 GM/200 ML BAG ONE (02:36)
--- NOTE | 2019-06-20 07:31 | CT ---
PRELIMINARY REPORT/[facility]/EMERGENCY AFTER HOURS PROCEDURE: CT abdomen and pelvis with contrast: Comparison: 03/31/2019 Findings: Indeterminate nodular densities in the left lung base. Multiple hypodense masses scattered throughout the liver. No hydronephrosis or symptomatic urinary calculus. Biliary stent in place. At least moderate intrahepatic biliary ductal dilatation. There is air in the normal size gallbladder. There is pneumobilia. The solid organs and vasculature are otherwise normal. Moderate to large volume ascites. Nodular densities throughout the peritoneal fat and The reproductive organs and urinary bladder are unremarkable. Mildly prominent small bowel loops. No high-grade obstruction or free air. There appears to be a small normal appendix. No evidence of appendicitis. Impression: Findings consistent with metastatic malignancy. There is large volume ascites with evidence of perito jon carcinomatosis. Multiple liver masses may be hypodense metastatic lesions. There are pulmonary n odules which may be malignant. Biliary ductal dilatation and pneumobilia with large caliber common bile duct stent. Pneumobilia is p robably benign. Correlate clinically for cholangitis. ELECTRONICALLY SIGNED BY: Juan Santos MD Jun 20, 2019 1:42:35 AM CDT This report is intended for review by the ordering physician only, in accordance of law. If you recei ve this report in error, please call [facility] at [phone]. FINAL REPORT EMERGENCY AFTER HOURS CT ABDOMEN AND PELVIS WITH CONTRAST: HISTORY: Abdominal pain and bloating since she began chemotherapy for her Stage IV colon cancer. COMPARISON: 03/31/2019. FINDINGS/IMPRESSION: I agree with the findings and impression given in the preliminary report per [facility] physici an. 1. There are innumerable metastases to the liver. 2. There has been interval development of ascites and peritoneal carcinomatosis since the prior CT. 3. Patient has a common bile duct stent with biliary air.
[2019-06-20] MEDS ORDERED: Iopamidol-370 76% 500 ML 1 ML ONE (11:46)
== END 2019-06-20 04:05 | disposition short-term general hospital (02) ==
LOC: ERS 00:36
DX: C18.9 Malignant neoplasm of colon, unspecified (principal); R18.0 Malignant ascites; K83.09 Other cholangitis
CPT/HCPCS: 74177; 80053; 81003; 83690; 85025; 85610; 85730; 96365; 96367; 96375; 96376; J2270; J2405; J2543; J3370; P9047; Q9967